=== PATIENT | female | born 1975 | race Caucasian/White ===

== ENCOUNTER 2021-01-20 10:01 | Day surgery (SDC) | payer BC, SELFPAY ==
[2021-01-18 11:42] LABS: BASOPHILS # (AUTO) 0.1 K/uL (0.0-0.2); BASOPHILS % (AUTO) 0.9 % (0.0-2.0); EOSINOPHILS # (AUTO) 0.2 K/uL (0.0-0.4); EOSINOPHILS % (AUTO) 2.8 % (0.0-4.0); HEMATOCRIT 38.5 % (36-48); HEMOGLOBIN 13.6 g/dL (12.0-16.0); LYMPHOCYTES # (AUTO) 2.1 K/uL (1.0-5.5); LYMPHOCYTES % (AUTO) 29.9 % (20.5-51.5); MEAN CORPUSCULAR HEMOGLOBIN 32 pg (27-31); MEAN CORPUSCULAR HGB CONC 36 % (32-36); MEAN CORPUSCULAR VOLUME 89 fL (79.0-98.0); MONOCYTES # (AUTO) 0.6 K/uL (0.0-1.0); MONOCYTES % (AUTO) 8.2 % (1.7-9.3); NEUTROPHILS # (AUTO) 4.1 K/uL (1.8-7.7); NEUTROPHILS % (AUTO) 58.2 % (40.0-70.0); PLATELET COUNT (AUTO) 298 K/uL (130-430); RED BLOOD CELL COUNT(AUTO) 4.34 MIL/uL (4.2-6.2); RED CELL DISTRIBUTION WIDTH 13.6 % (9.0-15.0)
[2021-01-18 12:47] LABS: ALBUMIN 3.4 g/dL (3.4-4.8); CALCIUM 8.3 mg/dL (8.4-11.0); CREATININE 0.73 mg/dL (0.55-1.30); POTASSIUM 3.8 mmol/L (3.5-5.1); TOTAL BILIRUBIN 0.5 mg/dL (0.0-1.0)
[~2021-01-20] VITALS: Ht 160 cm; Wt 86.2 kg
[2021-01-20 10:50] LABS: HCG,QUAL RESULT NEGATIVE (NEGATIVE)
[2021-01-20] MEDS ORDERED: SIMETHICONE 80 MG TAB.CHEW PO PRN (12:15)
[2021-01-20] MEDS ORDERED: HYDROmorphone 2 MG/ML VIAL IVP PRN ×2 (12:15→15:45)
[2021-01-20] MEDS ORDERED: OXYCODONE/ACETAMINOPHEN 5-325 TABLET PO PRN ×2 (12:15)
[2021-01-20] MEDS ORDERED: KETOROLAC TROMETHAMINE 30 MG VIAL IVP PRN ×3 (12:15→15:45)
[2021-01-20] MEDS ORDERED: IBUPROFEN 800 MG TABLET PO PRN (12:15)
[2021-01-20] MEDS ORDERED: ONDANSETRON HCL 4 MG/2 ML VIAL IVP PRN ×2 (12:15→15:45)
[2021-01-20] MEDS ORDERED: fentaNYL CITRATE/PF 100 MCG/2 ML AMP IVP ONE (12:29)
[2021-01-20] MEDS ORDERED: WATER FOR IRRIGATION,STERILE 1,000 ML IRRIG.SOLN IR ONE (12:29)
[2021-01-20] MEDS ORDERED: GLYCOPYRROLATE 0.2 MG/ML VIAL IJ ONE (12:29)
[2021-01-20] MEDS ORDERED: PROPOFOL 200MG/ 20ML VIAL (DIPRIVAN) IV ONE (12:29)
[2021-01-20] MEDS ORDERED: DEXAMETHASONE SOD PHOSPHATE 4 MG/ML VIAL IVP ONE (12:29)
[2021-01-20] MEDS ORDERED: ePHEDrine sulfate 50 MG/ML VIAL IVP ONE (12:29)
[2021-01-20] MEDS ORDERED: NS IRRIG SOLN 1000 ML IR ONE (12:29)
[2021-01-20] MEDS ORDERED: KETOROLAC TROMETHAMINE 30 MG VIAL IVP ONE ×2 (12:29→15:40)
[2021-01-20] MEDS ORDERED: HYDROmorphone 2 MG/ML VIAL IVP ONE (12:29)
[2021-01-20] MEDS ORDERED: NEOSTIGMINE METHYLSULFATE 1 MG/ML, 10 ML VIAL IM ONE (12:29)
[2021-01-20] MEDS ORDERED: SEVOFLURANE 15 MIN GAS INH ONE (12:29)
[2021-01-20] MEDS ORDERED: LR 1,000 ML IV.SOLN IV ONE (12:29)
[2021-01-20] MEDS ORDERED: ROCURONIUM BROMIDE 10 MG/ML (ZEMURON) IV ONE (12:29)
[2021-01-20] MEDS ORDERED: THROMBIN (BOVINE) 5000 UNITS/ VIAL TP ONE (13:56)
[2021-01-20] MEDS ORDERED: ONDANSETRON HCL 4 MG/2 ML VIAL ONE (15:26)
[2021-01-20] MEDS ORDERED: ONDANSETRON HCL 4 MG/2 ML VIAL IVP ONE ×2 (15:30)
[2021-01-20] MEDS ORDERED: KETOROLAC TROMETHAMINE 30 MG VIAL ONE (15:40)
[2021-01-20] MEDS ORDERED: LR 1,000 ML IV SCH (15:45)
[2021-01-20] MEDS ORDERED: HYDROmorphone 1 MG/ML INJ. CARTRIDGE IVP PRN ×2 (15:45)
[2021-01-20 16:06] VITALS: BP_SYST 136
[2021-01-20] MEDS: LR 1,000 ML IV SCH ×2 (19:02→20:51)
[2021-01-20 20:49] VITALS: BP_SYST 132
[2021-01-20] MEDS: DOCUSATE SODIUM 100 MG CAPSULE PO SCH (20:55)
[2021-01-20] MEDS ORDERED: TEMAZEPAM 15 MG CAPSULE PO PRN (21:00)
[2021-01-21 00:22] VITALS: BP_SYST 111
[2021-01-21] MEDS: LR 1,000 ML IV SCH ×2 (04:50→12:09)
[2021-01-21] MEDS ORDERED: PERC10 PO (04:58)
[2021-01-21] MEDS ORDERED: OXYC-128 PO (05:03)
[2021-01-21] MEDS ORDERED: IBUP800T54 PO (05:08)
[2021-01-21] MEDS ORDERED: DOCU-144 PO (05:09)
[2021-01-21 07:06] LABS: BASOPHILS % (AUTO) 0.3 % (0.0-2.0); HEMATOCRIT 34.5 % (36-48); HEMOGLOBIN 12.1 g/dL (12.0-16.0); LYMPHOCYTES # (AUTO) 1.3 K/uL (1.0-5.5); LYMPHOCYTES % (AUTO) 13.4 % (20.5-51.5); MEAN CORPUSCULAR HEMOGLOBIN 31 pg (27-31); MEAN CORPUSCULAR HGB CONC 35 % (32-36); MEAN CORPUSCULAR VOLUME 89 fL (79.0-98.0); MONOCYTES # (AUTO) 0.7 K/uL (0.0-1.0); MONOCYTES % (AUTO) 7.5 % (1.7-9.3); NEUTROPHILS # (AUTO) 7.6 K/uL (1.8-7.7); NEUTROPHILS % (AUTO) 78.8 % (40.0-70.0); PLATELET COUNT (AUTO) 250 K/uL (130-430); RED BLOOD CELL COUNT(AUTO) 3.89 MIL/uL (4.2-6.2); RED CELL DISTRIBUTION WIDTH 13.8 % (9.0-15.0); WHITE BLOOD COUNT (AUTO) 9.7 K/uL (4.8-10.8)
[2021-01-21 08:00] VITALS: BP_SYST 113
[2021-01-21] MEDS: DOCUSATE SODIUM 100 MG CAPSULE PO SCH (09:46)
[2021-01-21 12:00] VITALS: BP_SYST 127
[2021-01-21 14:37] VITALS: BP_SYST 113
== END 2021-01-21 15:23 | disposition home or self-care (01) ==
LOC: SDS 10:01 → SMU 10:06 → SDS 01-21 15:23
PROVIDERS: ATTEND Obstetrics & Gynecology
DX: N92.0 Excessive and frequent menstruation with regular cycle (principal); N72 Inflammatory disease of cervix uteri; E66.01 Morbid (severe) obesity due to excess calories; Z79.899 Other long term (current) drug therapy
CPT/HCPCS: 36415 ×2; 58570; 71046; 80053; 84703; 85025 ×2; 86886; 86900; 86901; 87081; 87426; 88307; C1727; J1100; J1170; J1885; J2405; J2704; J2710; J3010; J3490; J7120; S2900; E0190